=== PATIENT | male | born 1955 | race Caucasian/White ===

== ENCOUNTER → 2020-12-09 09:28 | Outpatient (CLI) | payer MEDICAID, SELFPAY ==
--- NOTE | 2020-12-09 09:35 | EKG12_ITS ---
Test Reason : MENTAL CLEARANCE Blood Pressure : / mmHG Vent. Rate : 063 BPM Atrial Rate : 063 BPM P-R Int : 120 ms QRS Dur : 090 ms QT Int : 398 ms P-R-T Axes : 007 075 071 degrees QTc Int : 407 ms Normal sinus rhythm Normal ECG Confirmed by DEISI ANDREW, MAICOL ([id number]), electronic news gathering editor KOLBY CHATMAN ([id number]) on 12/10/2020 9:20:20 AM Referred By: [facility] Confirmed By:MAICOL LIPSCOMB MD
== END ==
DX: I10 Essential (primary) hypertension (principal)
CPT/HCPCS: 93005

== ENCOUNTER → 2021-06-21 08:24 | Outpatient (CLI) | payer MEDICARE, MEDICAID, SELFPAY ==
--- NOTE | 2021-06-21 08:26 | RDU_ITS ---
Reason For Study: HTN Right Renal Artery Left Renal Artery Right renal artery ostium Left renal artery ostium 118.3/30.5 138.1/41.5 RSV/EDV. PSV/EDV. Right renal artery proximal Left renal artery proximal PSV/EDV 133.7/39.3 PSV/EDV. 109.5/28.3 . Right renal artery mid 102.9/19.5 Left renal artery mid 113.9/37.1 PSV/EDV. PSV/EDV . Right renal artery distal 108.1/38 Left renal artery distal 84.9/23.2 PSV/EDV. PSV/EDV. Right RAR 2.22. Left RAR 1.90. Right Renal Parenchyma Left Renal Parenchyma Upper Pole Medula 29.4/10.4 Left upper pole medulla 23.9/8.5 PSV/EDV. PSV/EDV . Right upper pole medulla EDR 0.35 . Left upper pole medulla EDR 0.36 . Right upper pole medulla R.I. Left upper pole medulla R.I. 0.64 . 0.65 . UP Cortex 15.3/5.5 PSV/EDV. Upper [place] Cortx 17.7/5.5 PSV/EDV. Left upper pole cortex EDR 0.36 . Right upper pole cortex EDR 0.31 . Left upper pole cortex R.I. 0.64 . Right upper pole cortex R.I. 0.69 . Left lower Pole medulla 25.1/9.2 Right lower Pole medulla 36.2/12.2 PSV/EDV . PSV/EDV . Left lower pole medulla EDR 0.36 . Right lower pole medulla EDR 0.34 . Left lower pole medulla R.I. 0.64 . Right lower pole medulla R.I. Lower Pole Cortx 16.5/6.7 PSV/EDV. 0.66 . Left lower pole cortex EDR 0.41 . Lower Pole Cortex 25.7/7.9 PSV/EDV. Left lower pole cortex R.I. 0.59 . Right lower pole cortex EDR 0.31 . Left Renal Hilar Right lower pole cortex R.I. 0.69 . LT Hilar avg 57.6/18.3 PSV/EDV . Right Renal Hilar Left hilar acceleration time 30 Right Hilar avg 63.4/19.3 PSV/EDV. m/sec. Right hilar acceleration time 60 Left Renal Dimensions m/sec. Left kidney size 11.69 cm . Right Renal Dimensions Left cortical dimension 1.31 cm . Right kidney size 10.45 cm . Heterogenous structure noted in the Right cortical dimension 1.36 cm . mid pole of the kidney that measures 1.56 x 1.89 cm. Aorta Proximal abdominal aorta 2.52 x 2.52 cm . Proximal abdominal aorta peak systolic velocity is 62.3 cm/sec . Distal abdominal aorta 1.71 x 1.71 cm . Distal abdominal aorta peak systolic velocity is 59.4 cm/sec . VL/Renal Artery Duplex Ultrasound Interpretation Summary Less than 60% stenosis right renal artery Normal right renal resistive indices Normal right renal length 10.45 cm Less than 60% stenosis left renal artery Normal left renal resistive indices Normal left renal length 11.69 cm Heterogenous structure noted in the left midpole of the kidney measuring 1.56 x 1.89 cm of undetermined etiology and clinical follow-up indicated Maximal aortic dimension 2.52 x 2.52 cm in diameter proximally with normal aort ic blood flow velocity [facility] notified verbally Ordering Physician: Esperanza Nettles Referring Physician: [facility] Performed By: Adenike Almanzar RVT
== END ==
PROVIDERS: Referring Provider Nurse Practitioner Adult Health; Visit Provider Nurse Practitioner Adult Health
DX: I10 Essential (primary) hypertension (principal)
CPT/HCPCS: 93975

== ENCOUNTER → 2021-06-27 16:38 | Outpatient (CLI) | payer MEDICARE, MEDICAID, SELFPAY ==
--- NOTE | 2021-06-27 16:40 | CT_ITS ---
INDICATION: BENIGN NEOPLASM OF L KIDNEY EXAMINATION: CT ABDOMEN WITH IV CONTRAST CT Abdomen W/ Contrast Injection TECHNIQUE: Helically acquired images were obtained of the abdomen following IV contrast. A radiation dose optimization technique was used for this scan. IV Contrast dosage and agent: 100 mL of [id number] administered intravenous. Oral contrast: None. COMPARISON: Renal ultrasound obtained 06/13/2021. FINDINGS: LOWER CHEST: Lung bases demonstrate mild bronchial wall thickening no evidence of intraluminal masses, no evidence of parenchymal lung masses. The bronchovascular markings are unremarkable. No cardiomegaly or pericardial effusion. LIVER: Heterogeneous attenuation visualized in the liver most prominent in the dome but no well-defined mass is seen, this could be artifactual due to artifact from air in the lower lung castano. GALLBLADDER AND BILIARY TREE: No calcified gallstones. No gallbladder distension or wall edema. No intra- or extrahepatic biliary ductal dilation. PANCREAS: No focal cystic or solid mass. SPLEEN: Normal size without focal cystic or solid mass. Subtle scattered calcifications visualized within the spleen suggestive of remote granulomatous disease. ADRENAL GLANDS: No nodules. KIDNEYS AND URETERS: Normal renal size and position. No hydronephrosis. There is a focal cortical prominence visualized in the midpole of the of the left kidney that extensive separates the paramedics, enhancement and structures similar to that of the overlying renal cortex, this is best visualized on axial series 2 image 50 and coronal series 601 image 66, this correlates with the ultrasound image 2 series 1-2 and series 1-1 image 28-35. Findings consistent with a hypertrophied column of Eagle which is a normal variant. PERITONEUM: No ascites or free air. No other fluid collection. BOWEL: Fluid-filled loops of small bowel, no evidence of bowel wall thickening is visualized no significant large bowel distention is seen. The appendix is visualized and is unremarkable. LYMPH NODES: No enlarged mesenteric or retroperitoneal lymph nodes. VESSELS: Aorta is non-dilated. Atherosclerotic calcification visualized at the abdominal aorta and at the origin of the mesenteric vessels most prominent in the origin of the superior mesenteric artery. There is a suggestion of significant narrowing seen.. Suggestion of mild narrowing at the origin of the celiac trunk, no significant narrowing of the origin of the inferior mesenteric artery. ABDOMINAL WALL: No discrete abdominal wall hernia. BONES: Degenerative bone changes seen. Most prominent involving the L4 and L5 vertebral bodies that demonstrate intense sclerosis, decreased intervertebral disc height with circumferential disc bulges visualized at L3-L4 and L4-L5 with severe moderate narrowing of the spinal canal and severe narrowing of bilateral neuroforamina. CT/Abdomen WITH IV Contrast IMPRESSION: Hypertrophied column of Eagle visualized in the midpole of the left kidney which is a normal variant. Extensive degenerative bone changes visualized most prominent at L3 and L4 vertebral bodies and at the L3-4 and L4-5 intervertebral disc spaces with severe narrowing of the neural foramina. Atherosclerotic calcification of the abdominal aorta and mesenteric vessels with suggestion of severe narrowing at the origin of the superior mesenteric artery. Electronically Signed: Larry Ann MD at 12:41 EDT Tel , Service support ,
[2021-06-27 16:55] LABS: EGFR FINGERSTICK > 60.0000 mL/min (>60)
== END ==
PROVIDERS: Referring Provider Nurse Practitioner Adult Health; Visit Provider Nurse Practitioner Adult Health
DX: D30.02 Benign neoplasm of left kidney (principal)
CPT/HCPCS: 74160; Q9967

== ENCOUNTER → 2024-04-15 | Outpatient (CLI) | payer MEDICARE, MEDICAID, SELFPAY ==
[2024-04-15 12:46] LABS: Absolute Lymphocyte Count 2.71 X10^3/uL (0.83-4.51); Absolute Neutrophil Count 3.6 X10^3/uL (2.0-7.7); Basophil# 0.07 X10^3/uL; Basophil% 0.9 % (0-1); Eosinophils% 5.1 % (0-5); Hematocrit 39.5 % (40-54); Hemoglobin 13.4 g/dL (13.0-16.5); Lymphocyte # 2.71 X10^3/ul (0.83-4.51); Lymphocyte % 34.3 % (19-41); Mean Corp Hgb Conc 33.9 g/dL (32-36); Mean Corpuscular Hgb 33.4 pg (27.0-32.0); Mean Corpuscular Volume 98.5 fL (80-94); Mean Platelet Vol. 10.6 fl (6.2-12.0); Monocyte# 1.05 X10^3/uL; Monocyte% 13.3 % (0-10); NRBC Flagged by Analyzer 0 % (0-5); Neutrophil # 3.64 X10^3/uL (2.7-7.7); Neutrophil % 45.9 % (47-70); Platelet Count 219 K/mm3 (150-450); RBC Distribution Width CV 12.5 % (11.6-14.6); RBC Distribution Width SD 45.1 fl (35.1-43.9); Red Blood Count 4.01 M/mm3 (4.6-6.2); White Blood Count 7.9 K/mm3 (4.4-11.0)
[2024-04-15 13:43] LABS: ALB/GLOB Ratio 0.9 RATIO (0.9-2.4); AST(SGOT) 62 U/L (15-37); Alanine Aminotransfer ALT/SGPT 57 U/L (16-61); Albumin, Serum 3.7 g/dL (3.2-5.0); Alkaline Phosphatase 74 U/L (45-117); Anion Gap 11 (5-15); BUN 8 mg/dL (7-18); BUN/Creat Ratio 9.9 RATIO (10-20); Calcium,Total 9.3 mg/dL (8.5-10.1); Chloride 99 mmol/L (98-107); Cholesterol 105 mg/dL (200); Creatinine, Serum 0.81 mg/dL (0.70-1.30); EST Glomerular Filtration Rate 100 mL/min (>60); Est Glom Filt Rate - Afr Amer 121 mL/min (>60); Globulin 4.1 g/dL (2.2-4.2); Glucose 132 mg/dL (74-106); High Density Lipoprotein 61 mg/dL; Potassium 3.8 mmol/L (3.5-5.1); Protein, Total 7.8 g/dL (6.4-8.2); Sodium Level 130 mmol/L (136-145); Thyroid Stim Hormone (TSH) 2.78 uIU/mL (0.358-3.74); Triglycerides 53 mg/dL; Very Low Density Lipoprotein 11 mg/dL (5-40)
== END | disposition home or self-care (01) ==
LOC: VSLAB 10:14
PROVIDERS: PCP Nurse Practitioner Family; Visit Provider Nurse Practitioner Family
DX: I10 Essential (primary) hypertension (principal); E78.5 Hyperlipidemia, unspecified
CPT/HCPCS: 36415; 80053; 80061; 84443; 85025

== ENCOUNTER → 2025-04-14 | Outpatient (CLI) | payer MEDICARE, MEDICAID, SELFPAY ==
[2025-04-14 12:30] LABS: Hematocrit 39.4 % (40-54); Hemoglobin 13.6 g/dL (13.0-16.5); Immature Granulocytes Count 0.040 X10^3/uL (0.0-0.0); Mean Corp Hgb Conc 34.5 g/dL (32-36); Mean Corpuscular Volume 99.5 fL (80-94); Mean Platelet Vol. 10.3 fl (6.2-12.0); NRBC Flagged by Analyzer 0 % (0-5); Platelet Count 294 K/mm3 (150-450); RBC Distribution Width CV 11.4 % (11.6-14.6); RBC Distribution Width SD 41.7 fl (35.1-43.9); Red Blood Count 3.96 M/mm3 (4.6-6.2); White Blood Count 7.9 K/mm3 (4.4-11.0)
[2025-04-14 13:25] LABS: AST(SGOT) 38 U/L (<=37); Alanine Aminotransfer ALT/SGPT 31 U/L (<=46); Albumin, Serum 4.0 g/dL (3.4-4.8); Alkaline Phosphatase 65 U/L (40-129); Anion Gap 12 (5-15); BUN 17 mg/dL (4-19); BUN/Creat Ratio 15.8 RATIO (10-20); Calcium,Total 9.6 mg/dL (7.6-11.0); Carbon Dioxide 21.6 mmol/L (21.0-32.0); Chloride 98 mmol/L (98-108); Cholesterol 121 mg/dL (<=200); Globulin 3.8 g/dL (2.2-4.2); Glucose 105 mg/dL (70-99); Low Density Lipoprotein Calc. 58 mg/dL; PSA,Total - Annual Screen 1.88 ng/mL (0.02-4.00); Potassium 4.4 mmol/L (3.3-5.1); Triglycerides 66 mg/dL; Very Low Density Lipoprotein 13 mg/dL (5-40); cholesterol:hdl ratio screen 2.42
== END | disposition home or self-care (01) ==
PROVIDERS: PCP Nurse Practitioner Family; Visit Provider Nurse Practitioner Family
DX: I10 Essential (primary) hypertension (principal); E78.5 Hyperlipidemia, unspecified; Z12.5 Encounter for screening for malignant neoplasm of prostate
CPT/HCPCS: 36415; 80053; 80061; 84153; 84443; 85025; G0103